=== PATIENT | female | born 1965 | race American Indian/Alaskan Native ===

== ENCOUNTER 2022-05-29 19:42 | Inpatient (IN) | payer MEDICAID ==
[2022-05-29] MEDS ORDERED: MORPHINE 4 MG/1 ML INJ IV ONE (20:43)
[2022-05-29] MEDS ORDERED: PANTOPRAZOLE 40 MG INJ IV ONE (20:43)
[2022-05-29] MEDS ORDERED: ONDANSETRON 4 MG/2 ML INJ IV ONE (20:43)
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
--- NOTE | 2022-05-29 21:16 | XRay Report ---
CHEST 1 VIEW 05/29/2022 8:51 PM INDICATION / CLINICAL INFORMATION: Chest pain and hemoptysis. COMPARISON: None available. FINDINGS: SUPPORT DEVICES: None. HEART / MEDIASTINUM: No significant abnormality. LUNGS / PLEURA: No significant pulmonary abnormality. No significant pleural effusion. No pneumothora x. ADDITIONAL FINDINGS: Fusion of the thoracic spine is unremarkable as visualized. IMPRESSION: 1. No acute abnormality of the chest. Signer Name: Pieter Hoang MD Signed: 05/29/2022 9:12 PM Workstation Name: [email or web address]
[2022-05-29 21:18] LABS: Basophils # (Auto) 0.1 K/mm3 (0.0-0.1); Eosinophils # (Auto) 0.5 K/mm3 (0.0-0.4); Eosinophils % (Auto) 6.2 % (0.0-4.3); Hematocrit 40.7 % (30.3-42.9); Hemoglobin 13.3 gm/dl (10.1-14.3); Lymphocytes # (Auto) 2.4 K/mm3 (1.2-5.4); Lymphocytes % (Auto) 27.6 % (13.4-35.0); Mean Corpuscular HGB Conc 33 % (30-34); Mean Corpuscular Volume 84 fl (79-97); Monocytes # (Auto) 0.7 K/mm3 (0.0-0.8); Monocytes % (Auto) 8.5 % (0.0-7.3); Platelet Count 375 K/mm3 (140-440); Red Blood Count 4.85 M/mm3 (3.65-5.03); Red Cell Distribution Width 14.4 % (13.2-15.2)
[2022-05-29 21:32] LABS: INR 1.27 (0.87-1.13)
[2022-05-29 21:33] LABS: Partial Thromboplastin Time 37.8 Sec. (24.2-36.6)
[2022-05-29] MEDS ORDERED: HYDROmorphone 0.5 MG/0.5 ML INJ IV ONE (22:11)
[2022-05-29 22:15] LABS: Alanine Aminotransferase 15 units/L (7-56); Albumin 4.1 g/dL (3.9-5); Blood Urea Nitrogen 8 mg/dL (7-17); Calcium 9.6 mg/dL (8.4-10.2); Hemolysis Index 18
[2022-05-29 22:17] LABS: BUN/Creatinine Ratio 16
--- NOTE | 2022-05-29 23:00 | Nuclear Medicine Report ---
Perfusion only Medicine scan INDICATION: Chest pain FINDINGS: 5.5 mCi of technetium MAA administered. Comparison is made with 05/29/2022. No large perfusi onal defects is definite seen. IMPRESSION: Low probability for PTE on perfusion only scan Signer Name: J Carlos Santillan MD Signed: 05/29/2022 10:55 PM Workstation Name: [id number]
[2022-05-30] MEDS ORDERED: HYDROmorphone 1 MG/1 ML INJ IV ONE (00:12)
--- NOTE | 2022-05-30 00:30 | Cat Scan Report ---
CT CHEST WITH CONTRAST INDICATION / CLINICAL INFORMATION: Acute chest pain, history of PE, and hemoptysis. TECHNIQUE: Axial CT images were obtained through the chest after IV contrast. All CT scans at this location are performed using CT dose reduction for ALARA by means of automated exposure control. COMPARISON: None available. FINDINGS: No focal consolidation, pleural effusion or pneumothorax.. No dominant nodular mass is identified. Th ere is abnormal peristalsis subcarinal region and esophagus with diffuse wall thickening and adenopat hy measuring 3.0 x 1.74 cm. Diffuse thickening of the distal esophagus as well. The central pulmonary appear patent however peripheral segmental pulmonary arteries not well seen. Mild fatty infiltration liver. IMPRESSION: 1. Abnormal appearance of the esophagus with diffuse wall thickening throughout. There is a focal are a of abnormal thickening at the level of the christopher measuring 3.0 x 1.74 cm. Esophageal mass cannot b e excluded. Diffuse thickening of the distal esophagus as well. Further workup with endoscopy and gas troenterology is recommended for further evaluation to evaluate for malignancy. 2. No focal consolidation is seen. The central pulmonary arteries appear patent however examination i s nondiagnostic for evaluation of the segmental and peripheral pulmonary arteries. Signer Name: J Carlos Santillan MD Signed: 05/30/2022 12:26 AM Workstation Name: [id number]
[2022-05-30] MEDS ORDERED: NITROGLYCERIN 0.4 MG TAB SUBL SL PRN (01:56)
[2022-05-30] MEDS ORDERED: ACETAMINOPHEN 325 MG TAB PO PRN ×2 (01:56)
[2022-05-30] MEDS ORDERED: MORPHINE 2 MG/1 ML INJ IV PRN (01:56)
[2022-05-30] MEDS ORDERED: MAGNESIUM HYDROXIDE (MOM) ORAL LIQD UDC PO PRN (01:56)
[2022-05-30] MEDS ORDERED: MORPHINE 4 MG/1 ML INJ IV PRN ×2 (01:56)
[2022-05-30] MEDS ORDERED: ONDANSETRON 4 MG/2 ML INJ IV PRN (01:56)
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
[2022-05-30 05:08] LABS: Blood Urea Nitrogen 8 mg/dL (7-17); Hemolysis Index 35
[2022-05-30 05:09] LABS: BUN/Creatinine Ratio 20
[2022-05-30] MEDS: D5W/0.45% NACL 1,000 ML IV SCH ×2 (06:46→21:19)
--- NOTE | 2022-05-30 10:40 | Electrocardiograph Report ---
[facility] Test Date: 2022-05-29 Test Time: 21:03:08 Pat Name: MIGUEL ANGEL PEREIRA Department: Room: A465 1 Gender: F Hydrologic Modeler: ELEANOR : 1965 Requested By: NITISH MULLEN Order Number: [id number] Reading MD: Pradeep Quesada Measurements Intervals [place] Rate: 83 P: 47 IL: 147 QRS: 52 QRSD: 78 T: 104 QT: 362 QTc: 427 Interpretive Statements Sinus rhythm Nonspecific ST and T abnormalities, lateral leads No previous ECG available for comparison Electronically Signed On 05-30-2022 10:39:51 EDT by Pradeep Quesada
--- NOTE | 2022-05-30 10:47 | Electrocardiograph Report ---
[facility] Test Date: 2022-05-30 Test Time: 07:12:01 Pat Name: MIGUEL ANGEL PEREIRA Department: Room: A465 1 Gender: F Pedicurist: MALATHI : 1965 Requested By: ROBYN ESPINOZA Order Number: [id number] Reading MD: Pradeep Quesada Measurements Intervals [place] Rate: 83 P: 67 [place]: 141 QRS: 59 QRSD: 92 T: QT: 359 QTc: 422 Interpretive Statements Sinus rhythm Nonspecific ST and T abnormalities, lateral leads Compared to ECG 05/29/2022 21:03:08 No significant changes Electronically Signed On 05-30-2022 10:46:27 EDT by Pradeep Quesada
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
[2022-05-30] MEDS: traMADol 50 MG TAB PO PRN ×2 (13:43→21:18)
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
--- NOTE | 2022-05-30 18:45 | Gastroenterology Consultation ---
History of Present Illness - Reason for Consult Consult date: 05/30/[address] Requesting physician: SAMANTHA MEMBRENO - History of Present Illness The patient is a 57 yo female admitted with chest pain and coughing up blood (transfusion not required). She is being evaluated by Cards but felt to be low risk for CAD. She is on Xarelto for a hx of DVT/PE. A CT scan showed significant esophageal wall thickening, but the patient denies dysphagia, odynophagia, abnormal loss of weight, or reflux. She had an EGD and colonoscopy 5 years ago ([place]) for GI bleeding, and these were negative. Past History Past Medical History: DVT, pulmonary embolism, other (Traumatic Spinal Cord Injury, Morbid Obesity) Past Surgical History: cholecystectomy, Social history: no significant social history Family history: other (CHF) Medications and Allergies Allergies Allergy/AdvReac Type Severity Reaction Status Date / Time No Known Allergies Allergy Verified 05/29/22 22:43 Home Medications Medication Instructions Recorded Confirmed Last Taken Type Baclofen 2 mg PO TID 05/30/22 05/30/22 05/29/22 09:00 History Gabapentin [Neurontin] 400 mg PO Q8HR 05/30/22 05/30/22 05/29/22 09:00 History Linaclotide [Linzess] 290 mcg PO DAILY 05/30/22 05/30/22 05/29/22 09:00 History Rivaroxaban [Xarelto] 10 mg PO QDAY 05/30/22 05/30/22 05/29/22 09:00 History diazePAM TAB [Valium] 2 mg PO TID PRN 05/30/22 05/30/22 05/29/22 09:00 History Active Meds: Active Medications Acetaminophen (Acetaminophen 325 Mg Tab) 650 mg PO Q4H PRN PRN Reason: Pain MILD(1-3)/Fever >100.5/[place]ETT Aspirin (Aspirin Ec 325 Mg Tab) 325 mg PO QDAY CLAUDIA Dextrose/Sodium Chloride (D5/0.45ns) 1,000 mls @ 100 mls/hr IV DIRECT CLAUDIA Last Admin: 05/30/22 06:46 Dose: 100 mls/hr Magnesium Hydroxide (Magnesium Hydroxide (Mom) Oral Liqd Udc) 30 ml PO Q4H PRN PRN Reason: Constipation Morphine Sulfate (Morphine 2 Mg/1 Ml Inj) 2 mg IV Q4H PRN PRN Reason: Pain, Moderate (4-6) Morphine Sulfate (Morphine 4 Mg/1 Ml Inj) 4 mg IV Q4H PRN PRN Reason: Pain , Severe (7-10) Morphine Sulfate (Morphine 4 Mg/1 Ml Inj) 2 mg IV Q5MIN PRN PRN Reason: Chest Pain unrelieved by NTG Nitroglycerin (Nitroglycerin 0.4 Mg Tab Subl) 0.4 mg SL Q5M PRN PRN Reason: Chest Pain Ondansetron HCl (Ondansetron 4 Mg/2 Ml Inj) 4 mg IV Q8H PRN PRN Reason: Nausea And Vomiting Pantoprazole Sodium (Pantoprazole 40 Mg Tab) 40 mg PO BIDAC CLAUDIA Sodium Chloride (Sodium Chloride 0.9% 10 Ml Flush Syringe) 10 ml IV BID CLAUDIA Last Admin: 05/30/22 09:35 Dose: 10 ml Sodium Chloride (Sodium Chloride 0.9% 10 Ml Flush Syringe) 10 ml IV PRN PRN PRN Reason: LINE FLUSH Tramadol HCl (Tramadol 50 Mg Tab) 50 mg PO Q6H PRN PRN Reason: Pain, Moderate (4-6) Last Admin: 05/30/22 13:43 Dose: 50 mg I HAVE REVIEWED AND RECONCILED MEDICATIONS Review of Systems - Review of Systems All systems: negative (as noted in the HPI) Exam - Constitutional Vital Signs: Temp Pulse Resp BP Pulse Ox 97.4 F L 76 18 101/58 96 05/30/22 16:53 05/30/22 16:53 05/30/22 16:53 05/30/22 16:53 05/30/22 16:53 General appearance: no acute distress, obese - EENT Eyes: PERRL, EOM intact ENT: hearing intact, clear oral mucosa, no poor dentition - Neck Neck: supple, normal ROM - Respiratory Respiratory effort: normal Respiratory: bilateral: CTA - Cardiovascular Rhythm: regular Heart Sounds: Present: S1 & S2 Extremities: no ischemia, No edema - Gastrointestinal General gastrointestinal: Present: soft, non-tender, non-distended - Integumentary Integumentary: Present: clear, warm, dry - Neurologic Neurological: alert and oriented x3, other (Paraplegia) - Psychiatric Psychiatric: appropriate mood/affect - Labs CBC & Chem 7: 05/29/22 20:48 05/30/22 04:31 Lab Results: Laboratory Results - last 24 hr 05/29/22 05/29/22 05/29/22 20:48 20:48 20:48 WBC 8.7 RBC 4.85 Hgb 13.3 Hct 40.7 MCV 84 MCH 27 L MCHC 33 RDW 14.4 Plt Count 375 Lymph % (Auto) 27.6 [place] % (Auto) 8.5 H Eos % (Auto) 6.2 H Baso % (Auto) 1.0 Lymph # (Auto) 2.4 [place] # (Auto) 0.7 Eos # (Auto) 0.5 H Baso # (Auto) 0.1 Seg Neutrophils % 56.7 Seg Neutrophils # 4.9 PT 17.4 H INR 1.27 H APTT 37.8 H D-Dimer 364.58 H Sodium 150 H Potassium 3.6 Chloride 111.4 H Carbon Dioxide 25 Anion Gap 17 BUN 8 Creatinine 0.5 L Estimated GFR > 60 BUN/Creatinine Ratio 16 Glucose 93 Calcium 9.6 Total Bilirubin 0.30 AST 16 ALT 15 Alkaline Phosphatase 86 Troponin T < 0.010 Total Protein 6.7 Albumin 4.1 Albumin/Globulin Ratio 1.6 05/30/22 05/30/22 04:31 Unknown WBC RBC Hgb Hct MCV MCH MCHC RDW Plt Count Lymph % (Auto) [place] % (Auto) Eos % (Auto) Baso % (Auto) Lymph # (Auto) [place] # (Auto) Eos # (Auto) Baso # (Auto) Seg Neutrophils % Seg Neutrophils # PT INR APTT D-Dimer Sodium 142 D Potassium 3.5 L Chloride 105.6 Carbon Dioxide 27 Anion Gap 13 BUN 8 Creatinine 0.4 L Estimated GFR > 60 BUN/Creatinine Ratio 20 Glucose 91 Calcium 9.0 Total Bilirubin AST ALT Alkaline Phosphatase Troponin T < 0.010 Total Protein Albumin Albumin/Globulin Ratio Assessment and Plan - Patient Problems (1) Abnormal CT scan, esophagus Current Visit: Yes Status: Acute Plan to address problem: - Likely related to GERD/chronic reflux given the patient's body habitus. - Given hemoptysis (?hematemesis) we will plan EGD when Cards eval complete. - We will start daily protonix.
[2022-05-31] MEDS: D5W/0.45% NACL 1,000 ML IV SCH ×2 (06:54→14:14)
[2022-05-31 09:39] LABS: Basophils # (Auto) 0.1 K/mm3 (0.0-0.1); Basophils % (Auto) 0.9 % (0.0-1.8); Eosinophils # (Auto) 0.6 K/mm3 (0.0-0.4); Hemoglobin 12.6 gm/dl (10.1-14.3); Lymphocytes # (Auto) 2.3 K/mm3 (1.2-5.4); Mean Corpuscular HGB Conc 33 % (30-34); Mean Corpuscular Volume 86 fl (79-97); Mean Platelet Volume 10.7 fl (6-12); Monocytes # (Auto) 0.7 K/mm3 (0.0-0.8); Monocytes % (Auto) 8.3 % (0.0-7.3); Platelet Count 233 K/mm3 (140-440); Red Blood Count 4.43 M/mm3 (3.65-5.03); Red Cell Distribution Width 14.4 % (13.2-15.2)
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
[2022-05-31 10:09] LABS: BUN/Creatinine Ratio 15; Blood Urea Nitrogen 6 mg/dL (7-17); Calcium 8.9 mg/dL (8.4-10.2); Hemolysis Index 67
[2022-05-31] MEDS: traMADol 50 MG TAB PO PRN ×2 (10:39→20:15)
[2022-05-31] MEDS: ASPIRIN EC 325 MG TAB PO SCH (10:40)
[2022-05-31] MEDS: PANTOPRAZOLE 40 MG TAB PO SCH ×2 (10:40→16:43)
--- NOTE | 2022-05-31 11:07 | Gastroenterology Progress Note ---
Assessment and Plan - Patient Problems (1) Abnormal CT scan, esophagus Current Visit: Yes Status: Acute Plan to address problem: - Likely related to GERD/chronic reflux given the patient's body habitus. - Given hemoptysis (?hematemesis) we will plan EGD tomorrow if TTE OK. - We will continue daily protonix. Subjective Date of service: 05/31/22 Principal diagnosis: Abnormal CT Interval history: The patient has no dysphagia or odynophatia. Eating without significant reflux. Objective - Constitutional Vitals: Temp Pulse Resp BP Pulse Ox 97.6 F 71 18 116/61 100 05/31/22 08:12 05/31/22 04:00 05/31/22 08:12 05/31/22 08:12 05/31/22 03:56 General appearance: no acute distress, obese - Respiratory Respiratory effort: normal Respiratory: bilateral: CTA - Cardiovascular Rhythm: regular Heart Sounds: Present: S1 & S2 - Gastrointestinal General gastrointestinal: Present: soft, non-tender, non-distended - Labs CBC & Chem 7: 05/31/22 Unknown 05/31/22 Unknown Labs: Laboratory Results - last 24 hr 05/31/22 05/31/22 Unknown Unknown WBC 8.5 RBC 4.43 Hgb 12.6 Hct 38.0 MCV 86 MCH 28 MCHC 33 RDW 14.4 Plt Count 233 Lymph % (Auto) 29.0 [place] % (Auto) 8.3 H Eos % (Auto) 8.0 H Baso % (Auto) 0.9 Lymph # (Auto) 2.3 [place] # (Auto) 0.7 Eos # (Auto) 0.6 H Baso # (Auto) 0.1 Seg Neutrophils % 53.8 Seg Neutrophils # 4.3 Sodium 145 Potassium 4.2 Chloride 105.2 Carbon Dioxide 26 Anion Gap 18 BUN 6 L Creatinine 0.4 L Estimated GFR > 60 BUN/Creatinine Ratio 15 Glucose 198 H Calcium 8.9
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
[2022-06-01] MEDS ORDERED: WATER FOR IRRIG STERILE 250 ML BOTTLE IR ONE (08:39)
[2022-06-01] MEDS ORDERED: WATER FOR IRRIG STERILE 1,000 ML BOTTLE ONE (08:39)
[2022-06-01] MEDS ORDERED: SODIUM CHLORIDE 0.9% 1000 ML 1,000 ML ONE (08:39)
[2022-06-01] MEDS ORDERED: propofoL 200 MG/20 ML VIAL IV ONE (08:45)
--- NOTE | 2022-06-01 09:12 | Post Operative Note ---
Pre-op diagnosis: Abnl CT Post-op diagnosis: other (Mild NERD) Findings: 1. NERD, cold bx 2. Normal stomach/duodenum Procedure: EGD with cold biopsy Anesthesia: MAC Surgeon: MORENITA SALINAS Estimated blood loss: minimal Pathology: list (1. Lower third esophagus, r/o esophagitis) Specimen disposition: to lab Condition: stable Disposition: floor (Recs: 1. Regular diet. 2. Continue daily protonix. 3. F/U Pathology in clinic; may discharge per our service.)
--- NOTE | 2022-06-01 09:53 | Operative Report ---
DATE OF SURGERY: 06/01/2022 PROCEDURE PERFORMED: Esophagogastroduodenoscopy with cold biopsy. PREOPERATIVE DIAGNOSIS: Abnormal CT scan of the esophagus. POSTOPERATIVE DIAGNOSIS: Nonerosive esophageal reflux disease. ENDOSCOPIST: Sky Ohara MD INSTRUMENT: Olympus video endoscope. MEDICATIONS: MAC anesthesia by Anesthesia Services. COMPLICATIONS: No apparent complications. ESTIMATED BLOOD LOSS: Minimal. SPECIMENS: Lower third of the esophagus, rule out esophagitis. IMPLANTS: None. ASSISTANTS: None. CONDITION AT COMPLETION: Stable. TECHNIQUE: The patient was informed of the risks and benefits of the procedure. She signed the informed consent to proceed. She was placed in the left lateral decubitus position. The above sedative medications were given. Her vital signs remained stable throughout the procedure. The instrument was advanced from the mouth to the second portion of the duodenum under direct visualization. At that point, the bowel was insufflated and the endoscope was slowly withdrawn. FINDINGS: 1. Normal duodenum. 2. Normal stomach. 3. Mild erythema in the lower and middle third of the esophagus, consistent with nonerosive esophageal reflux disease, status post cold biopsy; no evidence of a mass. RECOMMENDATIONS: 1. Regular diet. 2. Continue daily Protonix. 3. Follow up pathology in the clinic; the patient may be discharged home per our service. TID: [id number] RECEIPT: [id number] APRIL/DOUG
--- NOTE | 2022-06-01 11:05 | Post Anesthesia Evaluation ---
- Post Anesthesia Evaluation Patient Participated: Yes Airway Patent: Yes Stable Respiratory Function: Yes Nausea/Vomiting: No Temp > 96.8F: Yes Pain Manageable: Yes Adequeate Hydration: Yes Anesthesia Complications: No
--- NOTE | 2022-06-01 11:05 | Anesthesia Day of Surgery ---
Anesthesia Day of Surgery - Day of Surgery Patient Examined: Yes Patient H&P Reviewed: Yes Patient is NPO: Yes
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
[2022-06-01] MEDS: traMADol 50 MG TAB PO PRN (13:00)
[2022-06-01] MEDS: PANTOPRAZOLE 40 MG TAB PO SCH (13:00)
[2022-06-01 13:17] VITALS: BP 134/75
[2022-06-01] MEDS: ASPIRIN EC 325 MG TAB PO SCH (13:40)
== END 2022-06-01 15:00 | disposition home health service (06) | DRG 392 ==
LOC: ED 19:42 → 4A 05-30 01:57
PROVIDERS: ADMIT Internal Medicine Geriatric Medicine; ATTEND Hospitalist
PROC: 0DB38ZX Excision of Lower Esophagus, Via Natural or Artificial Opening Endoscopic, Diagnostic (ICD-10-PCS; principal; 2022-06-01)
DX: K20.90 Esophagitis, unspecified without bleeding (principal); G82.20 Paraplegia, unspecified; E87.0 Hyperosmolality and hypernatremia; Z68.41 Body mass index [BMI] 40.0-44.9, adult; R04.2 Hemoptysis; E66.9 Obesity, unspecified; Z90.49 Acquired absence of other specified parts of digestive tract; Z86.711 Personal history of pulmonary embolism
CPT/HCPCS: 36415; 71045; 71260; 78580; 80048; 80053; 84484; 85025; 85379; 85610; 85730; 88305; 93005; 93306; G0378; J7070; A9540; C8929; C9113; J1170; J2270; J2405; J2704; J7030; Q9967